=== PATIENT | female | born 1990 | race Caucasian/White ===

== ENCOUNTER 2024-07-31 08:00 | Emergency (ER) | payer OTHER ==
[~2024-07-31] VITALS: Ht 162.6 cm; Wt 54.4 kg
[2024-07-31] MEDS ORDERED: KETOROLAC TROMETHAMINE 60 MG VIAL IM STA (09:42)
[2024-07-31] MEDS ORDERED: NEOMYCIN/POLYMYXIN B/HYDROCORT 20 DR/ML BOTTLE OT ONE (09:47)
[2024-07-31] MEDS ORDERED: KETOROLAC TROMETHAMINE 60 MG VIAL IM ONE (10:08)
== END 2024-07-31 10:24 | disposition home or self-care (01) ==
LOC: ER 08:03
DX: H60.92 Unspecified otitis externa, left ear (principal)